=== PATIENT | female | born 1990 | race Caucasian/White ===

== ENCOUNTER 2021-01-17 11:26 | Emergency (ER) | payer MEDICAID, SELFPAY ==
[2021-01-17 12:54] VITALS: BP 132/94; PULSE 99; RESP 22; TEMP 36.6; O2SAT 98; BMI 25.0
--- NOTE | 2021-01-17 14:12 | ED_ITS ---
HPI - Abdominal Pain General: Chief Complaint: Abdominal Pain Stated Complaint: LOWER R ABD PAIN/SHAKES/NAUSEA/DIZZY Time Seen by Provider: 01/17/21 14:11 History of Present Illness: HPI narrative: Ms. Blue is a 30-year-old lady with out significant past medical history presents emergency department due to abdominal pain. She reports 1 episode of mild discomfort that self resolved 4 days ago in the right lower quadrant. However this morning, without specific known provoking factor, she noticed right lower quadrant abdominal pain. This is associated with mild nausea. No vomiting or changes in bowel movements or urination. No significant radiation. Quality is aching and moderate to severe in intensity worse with movement and palpation. Denies similar episodes in the past. No history of abdominal surgeries. She does have a history of known ova jenna cysts which at times ruptured however this is described as different. No other specific exacerbating or alleviating factors. Related Data: Date of Last Menstrual Period: 12/18/20 Review of Systems General: Reports: 10 or more systems reviewed and unremarkable except in HPI and below [facility] ED Female Reproductive History: Date of last menstrual period: 12/18/20 Physical Exam Narrative: EXAM NARRATIVE: GENERAL/CONSTITUTIONAL -mildly ill appearance. Uncomfortable due to pain Eyes -no scleral icterus, no conjunctival injection ENMT - Atraumatic external nose and ears. Moist mucous membranes NECK - supple. trachea midline CARDIOVASCULAR - regular rate and rhythm. Peripheral pulses 2+ and equal RESPIRATORY -clear to auscultation bilaterally. No retractions or accessory muscle use. ABDOMEN/GI -right mid and lower quadrant tenderness palpation without evidence of remote peritonitis. MSK - Extremities without obvious deformity or tenderness to palpation SKIN - Warm, Dry NEURO - alert and appropriately oriented. Moves all extremities equally. Course ED course: - Patient was seen and evaluated by me at bedside - Patient placed on cardiac monitors, IV access obtained - Initial evaluation notable for somewhat ill appearance, exam as noted above -Symptom treatment ordered - Labs notable for hemoconcentration and mild leukocytosis, no significant metabolic abnormality to explain patient's symptoms. Initial urine contaminated with squamous epithelial cells, repeat not concerning for urinary tract infection. - Imaging notable for mild thickening for the uroepithelium however in the context of negative urinalysis unclear significance. Pelvic ultrasound negative. - Upon serial reexamination after treatment the patient was improved with symptom treatment - Based on patient history, evaluation, labs, and imaging as interpreted the most likely cause of the patient's condition is unclear abdominal pain - The results of ED evaluation were discussed with the patient including prescriptions and/or symptomatic cares (if applicable) including appropriate and responsible use, followup plan, and return precautions. The patient verbalized understanding and felt safe for discharge. - Patient discharged in satisfactory condition. Vital Signs: Vital signs: Vital Signs Temperature 98 F 01/17/21 12:54 Pulse Rate 90 01/17/21 20:20 Respiratory Rate 16 01/17/21 20:20 Blood Pressure 112/88 01/17/21 16:59 Pulse Oximetry 99 01/17/21 20:20 MDM - Abdominal Pain Medical Records: Attestation: I reviewed the patient's medical records. Lab Data: Attestation: I reviewed the patient's lab results. Labs: Lab Results 01/17/21 01/17/21 01/17/21 15:08 15:08 15:08 WBC 12.1 10^3/uL H 10 ^3/uL (4.0-10.0) RBC 5.42 10^6/uL H 10 ^6/uL (4.1-5.3) Hgb 16.7 g/dL H g/dL (11.5-15.3) Hct 50.6 % H % (37.0-47.0) MCV 93.4 fl fl (81-99) MCH 30.8 pg pg (28.0-34.0) MCHC 33.0 g/dL g/dL (30.0-36.0) RDW 12.0 % L % (12.1-15.1) Plt Count 235 10^3/cmm 10^3 /cmm (130-400) MPV 10.0 fL fL (7.4-10.4) Neut % (Auto) 61.8 % % Lymph % (Auto) 29.8 % % [place] % (Auto) 5.7 % % Eos % (Auto) 1.7 % % Baso % (Auto) 0.7 % % Neut # (Auto) 7.47 10^3/uL 10^3 /uL (1.8-7.7) Lymph # (Auto) 3.6 10^3/uL 10^3/ uL (0.8-4.8) [place] # (Auto) 0.7 10^3/uL 10^3/ uL (0.2-0.9) Eos # (Auto) 0.2 10^3/uL 10^3/ uL (0.0-0.8) Baso # (Auto) 0.1 10^3/uL 10^3/ uL (0.0-0.1) Nucleated RBC % (a uto) 0 % % Nucleated RBCs # 0.0 /100WBC /100W BC Sodium 137 mmol/L mmol/L (136-145) Potassium 4.1 mmol/L mmol/L (3.5-5.1) Chloride 101 mmol/L mmol/L (98-107) Carbon Dioxide 23 mmol/L mmol/L (22-29) Anion Gap 17.1 (5-19) BUN 11 mg/dL mg/dL (6-20) Creatinine 0.5 mg/dL mg/dL (0.5-0.9) GFR Calculation 143.0 mL/min H mL /min (90-130) Glucose 78 mg/dL mg/dL (65-115) Calculated Osmolal ity 282 mOsm/kg L mOs m/kg (285-295) Calcium 9.8 mg/dL mg/dL (8.5-10.5) Total Bilirubin 0.4 mg/dL mg/dL (0.15-1.2) AST 13 U/L U/L (0-32) ALT 20 U/L U/L (0-33) Alkaline Phosphata se 77 IU/L IU/L (35-105) Total Protein 7.4 g/dL g/dL (6.6-8.7) Albumin 4.7 g/dL g/dL (3.5-5.2) Globulin 2.7 g/dL g/dL (1.3-4.6) Lipase 21 U/L U/L (13-60) HCG, Qual Negative (Negative) Urine Color Urine Appearance Urine pH Ur Specific Gravit y Urine Protein Urine Glucose (UA) Urine Ketones Urine Blood Urine Nitrate Urine Bilirubin Urine Urobilinogen Ur Leukocyte Emily ase Urine RBC Urine WBC Ur Squamous Epith Cells Amorphous Sediment Urine Bacteria Urine Mucus 01/17/21 01/17/21 15:20 17:26 WBC RBC Hgb Hct MCV MCH MCHC RDW Plt Count MPV Neut % (Auto) Lymph % (Auto) [place] % (Auto) Eos % (Auto) Baso % (Auto) Neut # (Auto) Lymph # (Auto) [place] # (Auto) Eos # (Auto) Baso # (Auto) Nucleated RBC % (a uto) Nucleated RBCs # Sodium Potassium Chloride Carbon Dioxide Anion Gap BUN Creatinine GFR Calculation Glucose Calculated Osmolal ity Calcium Total Bilirubin AST ALT Alkaline Phosphata se Total Protein Albumin Globulin Lipase HCG, Qual Urine Color Yellow Yellow (Yellow) (Yellow) Urine Appearance Hazy A Clear (CLEAR) (CLEAR) Urine pH 5 5 (5-7) (5-7) Ur Specific Gravit y 1.015 1.005 (1.005-1.030) (1.005-1.030) Urine Protein Neg Neg (Negative) (Negative) Urine Glucose (UA) Norm Norm (Normal) (Normal) Urine Ketones 1+ H 1+ H (Negative) (Negative) Urine Blood 2+ H Neg (Negative) (Negative) Urine Nitrate Positive H Negative (Negative) (Negative) Urine Bilirubin Neg Neg (Negative) (Negative) Urine Urobilinogen Norm mg/dL mg/dL Norm mg/dL mg/dL (Negative) (Negative) Ur Leukocyte Emily ase 2+ H Negative (Negative) (Negative) Urine RBC 10-15 /hpf H /hpf (0-2) Urine WBC 40-55 /hpf H /hpf (0-5) Ur Squamous Epith Cells 5-10 /hpf H /hpf (0-5) Amorphous Sediment Not Reportable Urine Bacteria 2+ /hpf H /hpf (NONE) Urine Mucus 2+ /hpf /hpf Discharge Plan Discharge Patient Disposition: Home Clinical Impression: Abdominal pain Condition: Stable Prescriptions: New ondansetron 4 mg tablet,disintegrating 4 mg PO Q8H PRN (Reason: nausea and vomiting) Qty: 14 RF: 0 oxycodone 5 mg tablet 5 mg PO Q4H PRN (Reason: pain) Qty: 6 RF: 0 Discharge Orders: Discharge ED (Routine); Ordered 01/17/21 Ordered By: Bony Wilson Discharge Diet: Advance as tolerated and Clear Liquid Discharge Activity: Resume usual activity Patient Instructions: Abdominal Pain (ED), Opioid Safety Activity Restrictions/Additional Instructions: Thank you for visiting the emergency department. You were seen and evaluated for abdominal pain. Based on CT and laboratory studies the exact cause of your symptoms is unclear. You will be given a prescription for nausea medication and pain medication. You may use [id number] medications however please do not exceed the daily recommended dosage and please keep in mind that multiple medications contain the same active ingredients. Please return for worsening symptoms or anything else that you are concerned about and feel needs emergency department evaluation. Coding Level of Care Code ED Sanitation Officer for Ernestina Garcia
--- NOTE | 2021-01-17 14:33 | CTR_ITS ---
PROCEDURE INFORMATION: Exam: CT Abdomen And Pelvis With Contrast Exam date and time: 01/17/2021 2:33 PM Age: 30 years old Clinical indication: Abdominal pain; Localized; Right lower quadrant (rlq); Patient HX: Rlq abd pain x 1 week TECHNIQUE: Imaging protocol: Computed tomography of the abdomen and pelvis with contrast. Radiation optimization: All CT scans at this facility use at least one of these dose optimization techniques: automated exposure control; mA and/or kV adjustment per patient size (includes targeted exams where dose is matched to clinical indication); or iterative reconstruction. Contrast material: OMNI 300; Contrast volume: 95 ml; Contrast route: INTRAVENOUS (IV); COMPARISON: [facility] Follow up 04/26/2018 4:32 PM RADIATION DOSE METRICS: Total DLP (mGy-cm): 975.25 FINDINGS: Liver: Normal. No mass. Gallbladder and bile ducts: Normal. No calcified stones. No ductal dilation. Pancreas: Normal. No ductal dilation. Spleen: Normal. No splenomegaly. Adrenal glands: Normal. No mass. Kidneys and ureters: Right ureteral urothelium enhances somewhat prominently raising concern for ascending urinary tract infection. There is no maya striated enhancement in the right kidney however delayed images were not obtained. Stomach and bowel: Unremarkable. No obstruction. No mucosal thickening. Appendix: A normal appendix is identified. Intraperitoneal space: Unremarkable. No free air. No significant fluid collection. Vasculature: Unremarkable. No abdominal aortic aneurysm. Lymph nodes: Unremarkable. No enlarged lymph nodes. Urinary bladder: Unremarkable as visualized. Reproductive: Cystic lesion along the right side of the vagina measures 11 mm in the transverse dimension. This has benign characteristics. There is an IUD in the uterus. Bones/joints: Unremarkable. No acute fracture. Soft tissues: Unremarkable. CT/CT abdomen pelvis w con* [id number] IMPRESSION: Right ureteral urothelium enhances prominently and raises concern for ascending urinary tract infection. No abnormal renal enhancement is seen however delayed images were not obtained. If there is clinical concern for pyelonephritis, delayed images are recommended to assess for striated enhancement. Radiation Dose CTDIVOL = (mGy): DLP = 975.25 (mGy-cm)
--- NOTE | 2021-01-17 15:02 | PC.NURSE ---
Assuming care of pt at this time.
[2021-01-17] MEDS: ondansetron 2 mg/ML SDV 2 mL 4 MG IVP (15:17)
[2021-01-17 15:18] VITALS: RESP 18
[2021-01-17] MEDS: sodium chloride 0.9% 1,000 ML 999 ML IV (15:18)
[2021-01-17] MEDS: morphine 4 mg/mL SDV 1 mL IVP (15:18)
[2021-01-17 15:20] LABS: Basophils # 0.1 10^3/uL (0.0-0.1); Basophils % 0.7 %; Eosinophils # 0.2 10^3/uL (0.0-0.8); Eosinophils % 1.7 %; Hematocrit 50.6 % (37.0-47.0); Hemoglobin 16.7 g/dL (11.5-15.3); Lymphocytes # 3.6 10^3/uL (0.8-4.8); Lymphocytes % 29.8 %; Mean Corpuscular Hemoglobin 30.8 pg (28.0-34.0); Mean Corpuscular Volume 93.4 fl (81-99); Monocytes # 0.7 10^3/uL (0.2-0.9); Monocytes % 5.7 %; Neutrophils # 7.47 10^3/uL (1.8-7.7); Neutrophils % 61.8 %; Nucleated Red Blood Cells % 0 %; Platelet Count 235 10^3/cmm (130-400); Red Blood Count 5.42 10^6/uL (4.1-5.3); White Blood Count 12.1 10^3/uL (4.0-10.0)
[2021-01-17 15:24] VITALS: BP 137/81; PULSE 101; RESP 18; O2SAT 98
[2021-01-17 15:38] LABS: HCG, Serum Qual Negative (Negative)
[2021-01-17 15:43] LABS: Add Urine Microscopic? YES; Bilirubin Urine Neg (Negative); Blood Urine 2+ (Negative); Glucose Urine UA Norm (Normal); Ketones Urine 1+ (Negative); Leukocyte Esterase Urine 2+ (Negative); Nitrate Urine Positive (Negative); Protein Urine Neg (Negative); Specific Gravity, Urine 1.015 (1.005-1.030); Urine Appearance Hazy (CLEAR); Urine Color Yellow (Yellow); Urobilinogen Urine Norm (Negative); pH Urine 5 (5-7)
[2021-01-17 15:44] LABS: Bacteria Urine 2+ /hpf; Mucus Urine 2+ /hpf; WBC Urine 40-55 /hpf (0-5)
[2021-01-17 15:45] LABS: Add Urine Culture? Yes
[2021-01-17 15:50] LABS: Alanine Aminotransferase 20 U/L (0-33); Albumin Level 4.7 g/dL (3.5-5.2); Alkaline Phosphatase 77 IU/L (35-105); Anion Gap 17.1 (5-19); Aspartate Amino Transferase 13 U/L (0-32); Blood Urea Nitrogen 11 mg/dL (6-20); Calcium 9.8 mg/dL (8.5-10.5); Carbon Dioxide 23 mmol/L (22-29); Chloride 101 mmol/L (98-107); Globulin 2.7 g/dL (1.3-4.6); Glucose 78 mg/dL (65-115); Lipase 21 U/L (13-60); Osmolality Calculated 282 mOsm/kg (285-295); Potassium 4.1 mmol/L (3.5-5.1); Sodium 137 mmol/L (136-145); Total Bilirubin 0.4 mg/dL (0.15-1.2); Total Protein 7.4 g/dL (6.6-8.7)
[2021-01-17] MEDS: iohexol 300 mg/mL 100 mL Btl IV (16:11)
[2021-01-17 16:59] VITALS: BP 112/88; PULSE 83; RESP 18; O2SAT 99
[2021-01-17 17:41] LABS: Add Urine Microscopic? NO; Charge for UA Resulting for Rev
[2021-01-17 17:59] LABS: Bilirubin Urine Neg (Negative); Blood Urine Neg (Negative); Glucose Urine UA Norm (Normal); Ketones Urine 1+ (Negative); Leukocyte Esterase Urine Negative (Negative); Nitrate Urine Negative (Negative); Protein Urine Neg (Negative); Specific Gravity, Urine 1.005 (1.005-1.030); Urine Appearance Clear (CLEAR); Urine Color Yellow (Yellow); Urobilinogen Urine Norm (Negative); pH Urine 5 (5-7)
--- NOTE | 2021-01-17 18:57 | USR_ITS ---
NOTE: Report was unsigned for reason: Order was edited. Original Signature date and time was: 01/17/21 @ 2008 PROCEDURE INFORMATION: Exam: US Nonobstetric Pelvis; Complete Exam date and time: 01/17/2021 6:57 PM Age: 30 years old Clinical indication: Pelvic pain; Additional info: Rlq pain, history of cysts, R/O torsion TECHNIQUE: Imaging protocol: Transabdominal pelvic nonobstetric ultrasound. Complete exam. Real time ultrasound with image documentation. COMPARISON: CT abdomen pelvis w con* [id number] 01/17/2021 4:09 PM FINDINGS: Uterus: IUD in the endometrial canal. Uterus measures 6.7 x 3.0 x 3.9 cm. Endometrium is normal in echogenicity and measures 4 mm. Right ovary/adnexa: Right ovary measures 2.6 by 2.1 x 2.7 cm. Normal appearing follicles. Normal vascularity. Left ovary/adnexa: Left ovary measures 2.1 by 2.8 cm. Normal appearing follicles. Normal vascularity. Intraperitoneal space: No intraperitoneal fluid. Urinary bladder: Normal. [facility]US pelvic with transvaginal IMPRESSION: Bilateral ovaries are unremarkable with normal vascularity and no evidence for torsion. Radiation Dose CTDIVOL = (mGy): DLP = (mGy-cm)
[2021-01-17 20:20] VITALS: PULSE 90; RESP 16; O2SAT 99
== END 2021-01-17 20:21 | disposition home or self-care (01) ==
PROVIDERS: Emergency Provider Emergency Medicine
DX: R10.9 Unspecified abdominal pain (principal)
CPT/HCPCS: 74177; 76830; 76856; 80053; 81001; 81003; 83690; 84703; 85025; 87077; 87086; 87186; 96361; 96374; 96375; 99284; J2270; J2405; J7030; Q9967

== ENCOUNTER 2021-05-25 12:22 | Outpatient (CLI) | payer MEDICAID, SELFPAY ==
--- NOTE | 2021-05-25 12:30 | XRR_ITS ---
PROCEDURE INFORMATION: Exam: XR Chest Exam date and time: 05/25/2021 12:30 PM Age: 30 years old Clinical indication: Other: Diffculty breathing TECHNIQUE: Imaging protocol: XR of the chest. Views: 2 views. COMPARISON: CT abdomen pelvis w con* [id number] 01/17/2021 4:09 PM FINDINGS: Lungs: Unremarkable. No consolidation. Pleural spaces: Unremarkable. No pleural effusion. No pneumothorax. Heart/Mediastinum: Unremarkable. No cardiomegaly. Bones/joints: Unremarkable. XR/XR chest 2V* [id number] IMPRESSION: No acute findings.
== END 2021-05-25 12:23 | disposition home or self-care (01) ==
LOC: RAD 12:25
PROVIDERS: Visit Provider Family Medicine
DX: R06.00 Dyspnea, unspecified (principal)
CPT/HCPCS: 71046

== ENCOUNTER 2022-10-13 10:39 | Outpatient (CLI) | payer MEDICAID, SELFPAY ==
--- NOTE | 2022-10-13 10:56 | MR_ITS ---
WS: [id number] MRI BRAIN WITH AND WITHOUT CONTRAST HISTORY: DIZZINESS/VERTIGO/MIGRAINE HEADACHE COMPARISON: None available. TECHNIQUE: Multiplanar imaging performed through the brain with MultiHance 10 ml's IV. No acute infarcts are seen. Perez-white matter differentiation is well preserved. No susceptibility artifacts or prior lacunar infarcts. Ventricles and extra-axial spaces are normal. Clivus and pituitary gland are normal. Visualized posterior fossa and brainstem are also normal. Postcontrast images are negative for masses or vascular malformations. Dural venous sinuses are normal. Paranasal sinuses: Well aerated with no significant disease. Mastoid air cells: Normal. Calvarium and scalp: No skull fracture. 7 mm well-circumscribed nodule is predominantly of decreased signal over the RIGHT posterior frontal bone. This is probably a small sebaceous cyst or epidermoid. Benign in appearance. MR/MR head wo/w con [id number] IMPRESSION: 1. No acute infarct and no mass. 2. No areas of abnormal enhancement. No hemorrhage. 3. Normal ventricles.
[2022-10-13] MEDS: gadobenate dimeglumine 20 mL vial IV (11:43)
== END 2022-10-13 10:40 | disposition home or self-care (01) ==
PROVIDERS: PCP Nurse Practitioner Family; Visit Provider Nurse Practitioner Family
DX: R42 Dizziness and giddiness (principal); G43.909 Migraine, unspecified, not intractable, without status migrainosus
CPT/HCPCS: 70553; A9577

== ENCOUNTER → 2024-04-08 16:34 | Outpatient (BNVA) | payer MEDICAID, SELFPAY | PROVIDERS: PCP Nurse Practitioner Family | DX: R30.9 Painful micturition, unspecified (principal) | CPT/HCPCS: 81000 ==